=== PATIENT | female | born 1960 | race Two or more races ===

== ENCOUNTER 2021-10-21 20:32 | Emergency (ER) | payer BC, OTHER ==
[~2021-10-21] VITALS: Ht 162.6 cm; Wt 65.8 kg
[2021-10-21] MEDS ORDERED: IV NS 0.9% 1,000 ML BAG IV ONE (21:30)
[2021-10-21 21:50] LABS: BASOPHILS # (AUTO) 0.1 K/uL (0.0-0.2); BASOPHILS % (AUTO) 0.5 % (0.0-2.0); HEMATOCRIT 42 % (33-45); HEMOGLOBIN 13.9 g/dL (11.5-14.8); LYMPHOCYTES # (AUTO) 1.1 K/uL (0.8-4.8); LYMPHOCYTES % (AUTO) 10.4 % (20.0-44.0); MEAN CORPUSCULAR HGB CONC 33 g/dl (31.0-36.0); MEAN CORPUSCULAR VOLUME 85 fL (82-100); MONOCYTES # (AUTO) 0.5 K/uL (0.1-1.30); MONOCYTES % (AUTO) 4.3 % (2.0-12.0); NEUTROPHILS # (AUTO) 9.2 K/uL (1.8-8.9); NEUTROPHILS % (AUTO) 84.8 % (43.0-81.0); PLATELET COUNT (AUTO) 262 K/uL (150-450); RED BLOOD CELL COUNT(AUTO) 4.97 MIL/uL (4.0-5.2); WHITE BLOOD COUNT (AUTO) 10.9 K/uL (4.3-11.0)
[2021-10-21 21:59] LABS: CARBON DIOXIDE 23 mmol/L (21-32); CHLORIDE 102 mmol/L (98-107); CREATININE 0.7 mg/dL (0.6-1.3); GLUCOSE 92 mg/dL (74-106); POTASSIUM 4.2 mmol/L (3.5-5.1); SODIUM SERUM 137 mmol/L (136-145); UREA NITROGEN, BLOOD 18 mg/dL (7-18)
[2021-10-21 22:01] LABS: SERUM AMMONIA 8 umol/L (11-32)
[2021-10-21 22:05] LABS: ALANINE AMINOTRANSFERASE 16 U/L (12-78); ALBUMIN 3.5 g/dL (3.4-5.0); ALCOHOL, BLOOD < 3 mg/dL (0-0); ALKALINE PHOSPHATASE 75 U/L (46-116); ASPARTATE AMINOTRANSFERASE 15 U/L (15-37); BILIRUBIN,DIRECT 0.1 mg/dL (0.0-0.2); BILIRUBIN,TOTAL 0.6 mg/dL (0.2-1.0); TOTAL PROTEIN, SERUM 7.3 g/dL (6.4-8.2)
[2021-10-21] MEDS ORDERED: hydrALAZINE HCL IV 20 MG VIAL ONE (22:12)
[2021-10-21 22:24] VITALS: BP 139/74
[2021-10-21] MEDS ORDERED: hydrALAZINE HCL IV 20 MG VIAL IV ONE (22:30)
== END 2021-10-21 23:26 | disposition short-term general hospital (02) ==
LOC: ER 20:34
DX: I61.8 Other nontraumatic intracerebral hemorrhage (principal); Z20.822 Contact with and (suspected) exposure to COVID-19; R94.31 Abnormal electrocardiogram [ECG] [EKG]; G93.6 Cerebral edema
CPT/HCPCS: 36415; 70450; 80048; 80076; 80320; 82140; 84443; 85025; 87426; 93005; 96361; 96374; 99291; C9803; J0360; J7030; G0480

== ENCOUNTER 2023-06-17 10:53 | Emergency (ER) | payer BC ==
[~2023-06-17] VITALS: Ht 160 cm; Wt 80.3 kg
[2023-06-17 11:13] VITALS: BP 126/84; TEMP 98.9; O2SAT 99
== END 2023-06-17 14:23 | disposition home or self-care (01) ==
LOC: ER 11:26
DX: S82.891A Other fracture of right lower leg, initial encounter for closed fracture (principal); Z60.2 Problems related to living alone; W01.0XXA Fall on same level from slipping, tripping and stumbling without subsequent striking against object, initial encounter; Y93.89 Activity, other specified; Y92.89 Other specified places as the place of occurrence of the external cause; Y99.8 Other external cause status
CPT/HCPCS: 73610-TC